=== PATIENT | male | born 1995 | race Two or more races ===

== ENCOUNTER 2018-09-19 09:13 | Emergency (ER) | payer OTHER ==
[2018-09-19 09:22] VITALS: BP 135/71
[2018-09-19] MEDS ORDERED: LIDOCAINE 5% (700 MG) TRANSDERMAL ADH..PATCH TP ONE (09:55)
[2018-09-19] MEDS ORDERED: OXYCODONE-ACETAMINOPHEN 5-325 MG TABLET PO ONE (09:55)
[2018-09-19] MEDS ORDERED: PREDNISONE 20 MG TABLET PO ONE (09:55)
--- NOTE | 2018-09-19 09:58 | ER Document Report ---
HPI - HPI Patient complains to provider of: back pain Time Seen by Provider: 09/19/18 09:38 Onset: Other - years, worse x 2 weeks Onset/Duration: Persistent, Worse Quality of pain: Achy, Sharp Pain Level: 3 Context: Patient complains of low back pain for the past 5 years that worsened over the past 2 weeks. Patient states yesterday he performed a high and this is ag gravated his pain causing pain in the low back to radiate to the left thigh area and up to the right shoulder area. Patient denies any traumatic injury. Patient denies any fever. Patient denies any urinary retention or incontinence. 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 Exacerbated by: Standing, Movement, Walking Relieved by: Denies Similar symptoms previously: Yes Recently seen / treated by doctor: Yes - ROS ROS below otherwise negative: Yes Systems Reviewed and Negative: Yes All other systems reviewed and negative - CONSTITUTIONAL Constitutional: DENIES: Fever - NEURO Neurology: DENIES: Weakness - GASTROINTESTINAL Gastrointestinal: DENIES: Patient vomiting - MUSCULOSKELETAL Musculoskeletal: REPORTS: Extremity pain, Back Pain - DERM Skin Color: Normal Skin Problems: None Past Medical History - General Information source: Patient - Social History Smoking Status: Never Smoker Frequency of alcohol use: None Drug Abuse: None Occupation: Active duty Lives with: Family Family History: Reviewed & Not Pertinent Musculoskeletal Medical History: Reports Other - Low back pain Surgical Hx: Negative Vertical Provider Document - CONSTITUTIONAL Agree With Documented VS: Yes Exam Limitations: No Limitations General Appearance: WD/WN, No Apparent Distress Notes: PHYSICAL EXAMINATION: GENERAL: Well-appearing, well-nourished and in no acute distress. HEAD: Atraumatic, normocephalic. EYES: sclera clear, anicteric, conjunctiva are normal. ENT: nares patent, Moist mucous membranes. NECK: Normal range of motion, supple no lymphadenopathy LUNGS: respirations unlabored HEART: Regular rate and rhythm without murmurs EXTREMITIES: Normal range of motion, no pitting or edema. No cyanosis. Gait normal, pt ambulates without difficulty BACK: Left SI joint tenderness, lower lumbar midline tenderness, no deformities or step-offs. No CVA tenderness. NEUROLOGICAL: Cranial nerves grossly intact. Normal speech, normal gait. No saddle anesthesia. Positive straight leg test on the left. No foot drop. 2+ bilateral patellar reflexes PSYCH: Normal mood, normal affect. SKIN: Warm, Dry, normal turgor, no rashes or lesions noted. - INFECTION CONTROL TRAVEL OUTSIDE OF THE [place] IN LAST 30 DAYS: No Course - Re-evaluation Re-evalutation: 09/19/18 10:10 The patient presents with low back pain without signs of spinal cord compression, cauda equina syndrome, infection, aneurysm, or other serious etiology. The patient is neurologically intact. Given the extremely risk of these diagnoses further testing and evaluation for these possibilities does not appear to be indicated at this time. Patient has been instructed to return if the symptoms worsen or change in any way. - Vital Signs Vital signs: Temp Pulse Resp BP Pulse Ox 97.7 F 78 16 135/71 H 98 09/19/18 09:21 09/19/18 09:21 09/19/18 09:21 09/19/18 09:21 09/19/18 09:21 Discharge - Discharge Clinical Impression: Low back pain Qualifiers: Chronicity: unspecified Back pain laterality: left Sciatica presence: with sciatica Sciatica laterality: sciatica of left side Qualified Code(s): M54.42 - Lumbago with sciatica, left side Sciatica Qualifiers: Laterality: left Qualified Code(s): M54.32 - Sciatica, left side Condition: Stable Disposition: HOME, SELF-CARE Instructions: Oral Narcotic Medication ([facility]), Sciatica ([facility]), Steroid Medication Additional Instructions: Return immediately for any new or worsening symptoms Followup with your primary care provider, call tomorrow to make a followup appointment No heavy lifting You may need referral for sports medicine, physical therapy and/or pain management for further evaluation and management of your symptoms Prescriptions: Lidocaine [Lidoderm 5% (700 mg) Transdermal Patch] 1 patch TP DAILY PRN #10 adh..patch PRN Reason: Oxycodone HCl/Acetaminophen [Percocet 5-325 mg Tablet] 1 tab PO ASDIR PRN #15 tablet PRN Reason: Prednisone [Deltasone 20 mg Tablet] 3 tab PO DAILY 4 Days tablet Forms: Return to Work Referrals: [facility] [Provider Group] - Follow up as needed
== END 2018-09-19 10:14 | disposition home or self-care (01) ==
LOC: ER 09:13
DX: M54.42 Lumbago with sciatica, left side (principal); G89.29 Other chronic pain
CPT/HCPCS: 99283; J7512

== ENCOUNTER 2018-10-16 18:02 | Emergency (ER) | payer OTHER ==
[2018-10-16 18:20] VITALS: BP 148/73
[2018-10-16] MEDS ORDERED: DEXAMETHASONE SOD PHOS INJ 10 MG/1 ML VIAL IM ONE (18:57)
[2018-10-16] MEDS ORDERED: KETOROLAC TROMETHAMINE 60 MG/2 ML SDV IM ONE (18:58)
--- NOTE | 2018-10-16 19:02 | ER Document Report ---
HPI - HPI Time Seen by Provider: 10/16/18 18:21 Pain Level: 3 Context: Patient is a 23-year-old male who presents the emergency department with chronic low back pain and left thigh pain. He has had his chronic back pain for the past 5 years. His pain is on bilateral sides of his back. He states that the pain starts in his left posterior lateral thigh and radiates up to his back. Describes his pain as an aching, sharp pain. He was seen here in the emergency department a few weeks ago for the same problem. He states that the pain is still the same. He uses the lidocaine patches that he was prescribed on his previous visit. He states that they do help. The patient is able to walk. Denies any new weakness. Denies any bladder or bowel dysfunction. Denies history of IV drug abuse. He is currently active duty . States that he did not get time to rest. He saw his primary care provider, diagnosed with a hamstring tear, but no physical therapy is ordered. - CONSTITUTIONAL Constitutional: DENIES: Fever, Chills - EENT EENT: DENIES: Sore Throat, Ear Pain, Eye problems - NEURO Neurology: DENIES: Headache, Weakness, Vision blurred, Dizzinesss / Vertigo - CARDIOVASCULAR Cardiovascular: DENIES: Chest pain - RESPIRATORY Respiratory: DENIES: Trouble Breathing, Coughing - GASTROINTESTINAL Gastrointestinal: DENIES: Abdominal Pain, Black / Bloody Stools - URINARY Urinary: DENIES: Dysuria, Urgency, Frequency - MUSCULOSKELETAL Musculoskeletal: REPORTS: Extremity pain Past Medical History - Social History Smoking Status: Never Smoker Chew tobacco use (# tins/day): No Frequency of alcohol use: None Drug Abuse: None Family History: Reviewed & Not Pertinent Patient has suicidal ideation: No Patient has homicidal ideation: No Renal/ Medical History: Denies: Hx Peritoneal Dialysis Vertical Provider Document - CONSTITUTIONAL Agree With Documented VS: Yes Exam Limitations: No Limitations General Appearance: No Apparent Distress - INFECTION CONTROL TRAVEL OUTSIDE OF THE [place] IN LAST 30 DAYS: No - HEENT HEENT: Atraumatic, Normocephalic - NECK Neck: Normal Inspection - RESPIRATORY Respiratory: Breath Sounds Normal, No Respiratory Distress - CARDIOVASCULAR Cardiovascular: Regular Rate, Regular Rhythm Pulses: Normal: Radial - BACK Back: Normal Inspection - MUSCULOSKELETAL/EXTREMETIES Musculoskeletal/Extremeties: Tender - Right thigh and bilateral lower back - NEURO Level of Consciousness: Awake, Alert, Appropriate Motor/Sensory: No Motor Deficit, No Sensory Deficit, No Pronator Drift Deep Tendon Reflexes: 2+ - DERM Integumentary: Warm, Dry Course - Re-evaluation Re-evalutation: 10/16/18 19:02 Patient is asking for another prescription of the Percocet he was prescribed from his last visit. I have explained to the patient that I do not prescribe narcotic pain medication. He will receive a dose of Decadron and Toradol here in the emergency department. He will also receive her lidocaine patches for home. I advised him that he needs to see physical therapy and [place] Differential diagnosis for back pain includes muscle spasm, muscle strain, slipped disc cauda equina syndrome, vertebral fracture, vertebral tumor, epidural abscess, pyelonephritis, or AAA. Based on history and exam, the most likely etiology of the patient's back pain is chronic. Emergent MRI is not indicated at this time because the patient does not have new weakness, or cauda equina syndrome. Patient does not have bladder or bowel dysfunction. Patient does not have history of IV drug use, therefore, I do not suspect an epidural abscess. Patient does not have recent weight loss or night sweats, and does not have a known history of cancer. Verbal discharge instructions were given to the patient. They verbalized understanding. They are stable for discharge. - Vital Signs Vital signs: Temp Pulse Resp BP Pulse Ox 98.1 F 89 16 148/73 H 97 10/16/18 18:18 10/16/18 18:18 10/16/18 18:18 10/16/18 18:18 10/16/18 18:18 Discharge - Discharge Clinical Impression: Left thigh pain Back pain Qualifiers: Back pain location: low back pain Chronicity: chronic Back pain laterality: bilateral Sciatica presence: without sciatica Qualified Code(s): M54.5 - Low back pain Left-sided low back pain with sciatica Qualifiers: Chronicity: chronic Sciatica laterality: sciatica of left side Qualified Code(s): M54.42 - Lumbago with sciatica, left side Condition: Stable Disposition: HOME, SELF-CARE Instructions: Ice Packs ([facility]), Warm Packs ([facility]) Additional Instructions: You were seen today in the emergency department for back pain and left thigh pain. Your back pain is most consistent with sciatic nerve pain. You may take ibuprofen 600 mg and acetaminophen 1000 mg every 6 hours as needed for the pain. You had been prescribed lidocaine patches. If you cannot use the lidocaine patches, you may also buy [id number] Aspercreme with lidocaine and apply to the area per box instructions. If you develop a fever greater than 100.4 F, lose bowel or bladder function, are unable to walk, or have any symptoms that are worrisome to you, please return to the emergency department. Please follow-up with your PCM. Please get a referral for physical therapy. Prescriptions: Lidocaine [Lidoderm 5% (700 mg) Transdermal Patch] 1 patch TP DAILY PRN #14 adh..patch PRN Reason: Forms: Special Work Note
== END 2018-10-16 19:22 | disposition home or self-care (01) ==
LOC: ER 18:02
DX: G89.29 Other chronic pain (principal); M54.42 Lumbago with sciatica, left side
CPT/HCPCS: 99283; 96372; J1885; J1100